=== PATIENT | male | born 1950 | race Caucasian/White ===

== ENCOUNTER → 2021-08-14 10:39 | Outpatient (BNVA) | payer MEDICARE, SELFPAY | PROVIDERS: PCP Internal Medicine; Visit Provider Urology | DX: N40.1 Benign prostatic hyperplasia with lower urinary tract symptoms (principal); R35.1 Nocturia; R33.9 Retention of urine, unspecified | CPT/HCPCS: Q3014 ==

== ENCOUNTER → 2022-08-14 10:47 | Outpatient (BNVA) | payer MEDICARE, SELFPAY | PROVIDERS: PCP Internal Medicine; Visit Provider Urology | DX: N40.1 Benign prostatic hyperplasia with lower urinary tract symptoms (principal); R35.1 Nocturia | CPT/HCPCS: Q3014 ==

== ENCOUNTER 2023-08-17 13:47 | Outpatient (AMB) | payer MEDICARE, SELFPAY ==
--- NOTE | 2023-08-17 13:48 | MHC.OFFVIS ---
Intake Intake Visit Reasons: yearly follow up/PVR Intake Note: Patient is Present for Telephone Follow Up Urology Med: Terazosin Antibiotic Allergy:None Blood Thinner:None Pharamcy: [facility] Allergies No Known Allergies Allergy (Verified 08/14/21 10:45) Medication List - Last Reconciled 08/17/23 by Vladislav Dimas MD atorvastatin 20 mg PO DAILY hydrochlorothiazide 25 mg PO DAILY metformin 1,000 mg PO BID moexipril 15 mg PO BID terazosin 10 mg PO BEDTIME 90 days HPI HPI Comments History of Present Illness Details Mr Dixon is a very pleasant male. He is a patient of Dr. Bowie. He is seen for the following urologic conditions. - lower urinary tract symptoms - urinary urgency and frequency Telemedicine evaluation 15 minute consultation Doximity Video attempted Continues to do well on terazosin 10 mg p.o. q.h.s. Does have nocturia x2, occasional urgency but otherwise will control Has HCTZ in am Stream is forceful Nocturia is main issue but gets empty Lower Urinary Tract Symptoms:? Current visit is for?further evaluation of, lower urinary tract symptoms, predominate irritative symptoms.? Current treatment includes?medication, alpha shay, terazosin 10mg ? Prostate Symptom Score?Moderate (9-19), Bother 3.? Symptoms include?frequency, urgency, weak stream, nocturia (>2), and are progressing.? Results from testing include? cystoscopy ?no abnormality seen 07/03 - minor trabeculation ? Prior Prostate Score?moderate.? PSA?May 2016 0.5, 07/04 0.4.? Prostate volume?< 30 gm.? Testing at next visit will include?Prostate Symptom Score, uroflow, bladder scan.? Treatment plan?As above.? PFSH Medical History OA (osteoarthritis) Obesity HTN (hypertension) Hypercholesterolemia Hyperlipidemia BPH (benign prostatic hyperplasia) Family history of prostate cancer Nocturia Incomplete emptying of bladder Urgency-frequency syndrome Surgical History History of surgery Assessment & Plan Assessment & Plan (1) Incomplete bladder emptying: Code(s): R33.9 - Retention of urine, unspecified (2) BPH (benign prostatic hyperplasia): Code(s): N40.0 - Benign prostatic hyperplasia without lower urinary tract symptoms Qualifiers: Lower urinary tract symptom presence: symptoms present Lower urinary tract symptom detail: nocturia Qualified Code(s): N40.1 - Benign prostatic hyperplasia with lower urinary tract symptoms; R35.1 - Nocturia (3) Nocturia: Code(s): R35.1 - Nocturia Plan Twelve month follow-up Orders: Orders Prostate Specific Antigen 364 Days N40.0 - Benign prostatic hyperplasia without lower urinary tract symptoms Medications: Refilled terazosin take 1 capsules at night 10 mg PO BEDTIME 90 days 90 caps 1RF Patient Instructions: Imaging studies, laboratory and physical exam results were discussed and reviewed in detail. No major barriers to patient understanding were identified. An opportunity to ask questions regarding the treatment plan was provided. All questions were answered. The patient expressed understanding and agreement with the above treatment plan. The patient is aware they should contact our office by phone for worsening of their current condition or the appearance of new urologic symptoms. Compliance is encouraged with any medications and followup testing that is ordered. It is a privilege to participate in the urologic care of your patient. If you have any questions or concerns regarding treatment for the above conditions, or other urologic issues, please do not hesitate to contact me. The office telephone contact is [phone]. This note is constructed using voice recognition software. While every effort has been made to ensure accuracy reduction plant supervisor errors may have been included. Yours sincerely, Dr Vladislav Dimas MD, [facility] - Urology Providers of Expert, Compassionate Care for the Genitourinary System Telehealth Telehealth Location of provider rendering services: practice address Location of patient: address on file Patient Identification confirmed using: Name, : Yes Telehealth method: voice only Patient verbally consented to treatment: Yes Patient verbally consented to billing insurance company: Yes Patient informed of any privacy concerns related to visit: Yes Coding Level of Care Code Tele Est Pt Level 4 (91899) Diagnoses Incomplete bladder emptying R33.9 Benign prostatic hyperplasia with nocturia N40.1; R35.1 Lower urinary tract symptom presence: symptoms present Lower urinary tract symptom detail: nocturia Nocturia R35.1
== END 2023-08-17 14:20 | disposition home or self-care (01) ==
LOC: HO.HUSH 13:47
PROVIDERS: PCP Internal Medicine; Visit Provider Urology
DX: R33.9 Retention of urine, unspecified (principal); N40.1 Benign prostatic hyperplasia with lower urinary tract symptoms; R35.1 Nocturia
CPT/HCPCS: 99442

== ENCOUNTER → 2023-08-17 13:47 | Outpatient (BNVA) | payer MEDICARE, SELFPAY | PROVIDERS: PCP Internal Medicine; Visit Provider Urology ==

== ENCOUNTER 2024-10-03 11:42 | Outpatient (AMB) | payer MEDICARE, SELFPAY ==
--- NOTE | 2024-10-03 11:42 | A.OFFVIS_ITS ---
Intake Visit Reasons: 1Y PSA(set) Intake Note: Patient is Present for Telephone 1Y PSA Follow Up Urology Med: Terazosin Antibiotic Allergy:None Blood Thinner:None Compliance Engineer Required: No Allergies No Known Allergies Allergy (Verified 08/14/21 10:45) HPI Comments Details: Mr Dixon is a very pleasant male. He is a patient of Dr. Bowie. He is seen for the following urologic conditions. - lower urinary tract symptoms - urinary urgency and frequency Telemedicine evaluation 15 minute consultation Doximity Video attempted Limited mobility Yearly follow-up Continues to do well on terazosin 10 mg p.o. q.h.s. Does have nocturia x2, occasional urgency but otherwise will control Has HCTZ in am Stream is forceful Nocturia is main issue but gets empty Lower Urinary Tract Symptoms:? Current visit is for?further evaluation of, lower urinary tract symptoms, predominate irritative symptoms.? Current treatment includes?medication, alpha shay, terazosin 10mg ? Prostate Symptom Score?Moderate (9-19), Bother 3.? Symptoms include?frequency, urgency, weak stream, nocturia (>2), and are progressing.? Results from testing include? cystoscopy ?no abnormality seen 07/03 - minor trabeculation ? Prior Prostate Score?moderate.? PSA?May 2016 0.5, 07/04 0.4.? Prostate volume?< 30 gm.? Testing at next visit will include?Prostate Symptom Score, uroflow, bladder scan.? Treatment plan?as above.? PFSH Medical History OA (osteoarthritis) Obesity HTN (hypertension) Hypercholesterolemia Hyperlipidemia BPH (benign prostatic hyperplasia) Family history of prostate cancer Nocturia Incomplete emptying of bladder Urgency-frequency syndrome Surgical History History of surgery Review of Systems Const All systems reviewed & are unremarkable except as noted in HPI and below Reports no additional complaints Resp Reports no additional complaints GI Reports no additional complaints Reports as per HPI Musc Reports no additional complaints Physical Exam Telemedicine evaluation Appropriate responses Regular breathing rate and rhythm HEENT Head: Yes normal to inspection Ears: hearing grossly normal bilaterally Eyes General: appearance normal, both eyes and all related structures Neck Neck: Yes normal visual inspection Chest Chest palpation & inspection: normal inspection of the chest Resp Effort & Inspection: normal respiratory effort and able to speak in complete sentences Telehealth Telehealth Telehealth Platform: [employer] Location of provider rendering services: practice address Location of patient: address on file Patient Identification confirmed using: Name, : Yes Telehealth method: video Patient verbally consented to treatment: Yes Patient verbally consented to billing insurance company: Yes Patient informed of any privacy concerns related to visit: Yes Minutes spent on Phone/Video with Pt.: 15 Assessment & Plan Assessment & Plan (1) Nocturia: Code(s): R35.1 - Nocturia Category: Medical (2) Incomplete bladder emptying: Code(s): R33.9 - Retention of urine, unspecified Category: Medical Plan 12 month follow-up Orders: Orders Prostate Specific Antigen 364 Days N40.1 - Benign prostatic hyperplasia with lower urinary tract symptoms, R35.1 - Nocturia Medications: Refilled terazosin take 1 capsules at night 10 mg PO BEDTIME 90 caps 3RF 90 days Patient Instructions: Imaging studies, laboratory and physical exam results were discussed and reviewed in detail. No major barriers to patient understanding were identified. An opportunity to ask questions regarding the treatment plan was provided. All questions were answered. The patient expressed understanding and agreement with the above treatment plan. The patient is aware they should contact our office by phone for worsening of their current condition or the appearance of new urologic symptoms. Compliance is encouraged with any medications and followup testing that is ordered. It is a privilege to participate in the urologic care of your patient. If you have any questions or concerns regarding treatment for the above conditions, or other urologic issues, please do not hesitate to contact me. The office telephone contact is [phone]. This note is constructed using voice recognition software. While every effort has been made to ensure accuracy injection moulding machine operator errors may have been included. Yours sincerely, Dr Vladislav Dimas MD, [facility] - Urology Providers of Expert, Compassionate Care for the Genitourinary System Coding Level of Care Code Tele Est Pt Level 4 (25825) Diagnoses Nocturia R35.1 Incomplete bladder emptying R33.9
== END 2024-10-03 16:18 | disposition home or self-care (01) ==
LOC: HO.HUSH 11:42
PROVIDERS: PCP Internal Medicine; Visit Provider Urology
DX: R35.1 Nocturia (principal); R33.9 Retention of urine, unspecified
CPT/HCPCS: 99214